=== PATIENT | male | born 1985 | race Caucasian/White ===

== ENCOUNTER 2022-02-26 14:10 | Emergency (ER) | payer OTHER ==
[~2022-02-26] VITALS: Ht 175.3 cm; Wt 70.3 kg
--- NOTE | 2022-02-26 14:37 | NUR ---
[email or web address], medical screening exam in progress
[2022-02-26] MEDS ORDERED: LORA0.5T48 PO (14:49)
[2022-02-26] MEDS ORDERED: FLUO20CA36 PO (14:49)
--- NOTE | 2022-02-26 14:53 | NUR ---
Patient discharged to home in stable condition with brisk steady gait. Written and verbal after care instructions given. Patient verbalized understanding and compliance of instructions. Stressed follow up with primary doctor and neurologist or return to ER for worsening s/s.
== END 2022-02-26 14:53 | disposition home or self-care (01) ==
LOC: ER 14:10
DX: F41.9 Anxiety disorder, unspecified (principal); Z76.0 Encounter for issue of repeat prescription
CPT/HCPCS: A4663